=== PATIENT | male | born 1975 | race Caucasian/White ===

== ENCOUNTER 2025-05-16 12:55 | Outpatient (CLI) | payer BC, SELFPAY ==
--- NOTE | ~2025-05-16 | CT_ITS ---
CT Scan of the Chest without Contrast: Clinical Indication: Pulmonary nodule Technique: Contiguous sections were acquired throughout the chest without intravenous contrast. Dose reduction technique was used on this scan by utilizing automated exposure control and iterative recon struction technique. The dose-length product (DLP) was 193.10 mGy-cm. COMPARISON: 08/24/2024 Findings: There is no evidence of any significant mediastinal, hilar or axillary lymphadenopathy. The mediastin al soft tissues appear normal. There is no evidence of pleural or pericardial effusion. Stable large calcified right upper lobe granuloma. Images through the upper abdomen reveal no abnormalities. Impression: Stable large calcified right upper lobe granuloma. No further follow-up required. Reviewed, dictated and finalized at location . Impression: Stable large calcified right upper lobe granuloma. No further follow-up require d.
== END 2025-05-16 12:56 | disposition home or self-care (01) ==
LOC: MICIMG 12:55
PROVIDERS: PCP Physician Assistant Medical; Visit Provider Physician Assistant
DX: R91.1 Solitary pulmonary nodule (principal)
CPT/HCPCS: 71250